=== PATIENT | female | born 1985 | race Caucasian/White ===

== ENCOUNTER 2018-01-28 14:14 | Emergency (ER) | payer SELFPAY ==
[~2018-01-28] VITALS: Ht 160 cm; Wt 59.0 kg
[2018-01-28] MEDS ORDERED: BACITRACIN ZINC OINT UDPKT TOP ONE (15:30)
[2018-01-28] MEDS ORDERED: TETANUS, DIPHTHERIA, PERTUSSIS VAC/PF 0.5ML (>7YR OLD) IM ONE (15:30)
[2018-01-28] MEDS ORDERED: LIDOCAINE HCL 1% 20ML VIAL (Pyxis) INJ MC ONE (15:30)
[2018-01-28] MEDS ORDERED: HYDROCODONE/ACETAMINOPHEN 5/325MG TABLET PO ONE (16:45)
[2018-01-28] MEDS ORDERED: LIDOCAINE HCL/PF 1% 10 MG/ML 5ML VIAL IJ SCH (16:45)
[2018-01-28 18:18] VITALS: BP 132/83
== END 2018-01-28 20:16 | disposition home or self-care (01) ==
LOC: ER 20:12
DX: S62.660B Nondisplaced fracture of distal phalanx of right index finger, initial encounter for open fracture (principal); W22.8XXA Striking against or struck by other objects, initial encounter; Y93.89 Activity, other specified; Y92.018 Other place in single-family (private) house as the place of occurrence of the external cause
CPT/HCPCS: 12001; 73130; 81025; 90471; 90715; 99284; J3490